=== PATIENT | male | born 1955 | race Caucasian/White ===

== ENCOUNTER 2019-03-14 09:58 | Inpatient (IN) | payer OTHER ==
[~2019-03-14] VITALS: Ht 180.3 cm; Wt 64.7 kg
[2019-03-14 11:22] VITALS: BP 161/111; PULSE 45; TEMP 98.2
[2019-03-14 12:02] VITALS: BP 161/11; PULSE 45; TEMP 98.2
--- NOTE | 2019-03-14 13:07 | NUR ---
HepXa level 0.6, decrease by 1ml/hr, TRA 7 ml/hr, next Hepxa check is 03/14 @1900
--- NOTE | 2019-03-14 14:00 | NUR ---
Admission assessment completed, alert/oriented, patient is hypertensive but is improving after having received meds at [facility], he denies any chest pain or pressure at this, he reports his breathing is much easier as well, lasix was given prior to leaving [place] and he is diuresing, he is on 2 L. o2 and sats are WNL, lungs diminished / coarse in bases, patient is a current pack/day smoker, heart RRR/distal pulses are palpable, Notified of his arrival and she has given me order to place on TELE/ draw HepXa and Troponin levels/ start heparin gtt protocol/ and Consult Cardiology, I Have notified of patients arrival to the Medical floor from [place], present, denies needs at [facility], will continue to monitor
[2019-03-14 14:55] LABS: MAGNESIUM 2.1 mg/dL (1.6-2.3); PHOSPHOROUS 5.4 mg/dL (2.5-4.5)
--- NOTE | 2019-03-14 15:16 | NUR ---
patient going down for CT
[2019-03-14 15:27] LABS: TSH w REFLEX 0.784 uIU/mL (0.465-4.680)
[2019-03-14 16:56] LABS: PH 5 (5-8); SQUAMOUS EPITHELIAL None Seen /hpf; URINE APPEARANCE Clear; URINE BACTERIA None Seen /hpf; URINE BILIRUBIN Negative (NEGATIVE); URINE BLOOD 1+ (NEGATIVE); URINE COLOR Yellow; URINE GLUCOSE Negative (NEGATIVE); URINE KETONE Negative (NEGATIVE); URINE LEUKOCYTE ESTERASE Negative (NEGATIVE); URINE NITRATE Negative (NEGATIVE); URINE PROTEIN(semi-quant) 2+ (NEGATIVE); URINE RBC 0-2 /hpf; URINE UROBILINOGEN Negative (NEGATIVE)
[2019-03-14 17:06] LABS: COLLECTION METHOD CLEAN CATCH
[2019-03-14 17:21] VITALS: BP 199/94; PULSE 48; TEMP 98
--- NOTE | 2019-03-14 19:41 | NUR ---
HepXa 0.44. No change at this time.
[2019-03-14 20:12] VITALS: BP 152/96; PULSE 78; TEMP 98.2
--- NOTE | 2019-03-14 20:20 | NUR ---
Patient assessed at this time. Alert and oriented x 4, and able to make needs known. Denies having pain and discomfort. Peripheral IV to left AC. Heparin drip running at 12 ml/hr per orders. Site is without redness, warmth, swelling, and pain. On oxygen at 2 L/min via NC. Denies having SOB and dyspnea. LS CTA in upper lobes, diminished in lower lobes. Bradycardia. Capillary refill less than 3 seconds. Non-tenting skin turgor. BSAx4. Abdomen soft and non-tender. No edema. Voices no questions, needs, or concerns at this time. Resting in bed with call light within reach.
[2019-03-14 21:50] VITALS: BP 173/117; PULSE 100
--- NOTE | 2019-03-14 21:54 | NUR ---
Telemetery called at 2139 and stated that patient's HR was going into the 130s. Upon assessment, patient was resting in bed. Labored breathing noted: RR 24, use of accessory muscles. Denies SOB and dyspnea. Pulse 100 when checked, and decreased rapidly to 40s, before increasing again above 120. BP 173/114. SPO2 95% on 2 L/min via NC. Called and spoke with Dr. Le at 2144. Updated on patient status. New order to give Procardia 30 mg now. Given to patient at 2149. Voices no questions, needs or concerns. Explained to patient why medication was given, and voiced understanding. Continues to deny SOB and chest pain and palpitations. Resting in bed with call light within reach.
[2019-03-14 23:42] VITALS: BP 176/106; PULSE 48
--- NOTE | 2019-03-14 23:58 | NUR ---
BP at this time 176/106. HR 48. HR has increased to the 130s once since given medication, when patient was walking to the bathroom. Patient's HR is staying under 110s at this time. Continues to deny having pain and discomfort. Voices no questions, needs, or concerns at this time. Resting in bed with call light within reach.
[2019-03-15] VITALS (349 sets, daily range): BP systolic 149–215; BP diastolic 91–129; PULSE 45–98; TEMP 97.7–98.9; O2SAT 91–99
--- NOTE | 2019-03-15 01:27 | NUR ---
HepXa 0.56. No change at this time.
--- NOTE | 2019-03-15 01:45 | NUR ---
Call placed to Dr. Le. Updated on VS: 154/102. HR ranging from 40s-120s. No med orders at this time. Old parameters to notify MD was HR < 50, > 120. MD changed to new paramters to notify when HR < 40, > 140. Called and updated telemetry and orders updated in chart.
--- NOTE | 2019-03-15 05:47 | NUR ---
Patient continues to deny having pain and discomfort. Voices no questions, needs, or concerns at this time. Continues on Heparin drip per orders. Resting in bed with call light within reach.
[2019-03-15 06:35] LABS: BASO % 0.1 % (0.0-2.0); GRAN # 7.1 (1.4-6.5); GRAN % 75.7 % (42.2-75.2); HEMOGLOBIN 10.7 g/dl (13.5-18.0); LYMPH # 1.3 (1.2-3.4); LYMPH % 14.2 % (20.0-51.0); MEAN CELL VOLUME 88 fl (80.0-100.0); MEAN CORPUSCULAR HEMOGLOBIN 30 pg (27.0-31.0); MEAN CORPUSCULAR HGB CONC 34 g/dl (33.0-37.0); MEAN PLATELET VOLUME 10.8 fl (7.4-10.4); MONO # 0.9 (0.1-0.6); MONO % 9.6 % (1.7-9.3); PLATELET COUNT 239 K/mm3 (130-400); REDCELL DISTRIBUTION WIDTH-CV 12.4 % (11.5-14.5)
[2019-03-15 06:42] LABS: HEMATOCRIT 31.6 % (42.0-52.0)
[2019-03-15 06:57] LABS: CALCIUM 8.3 mg/dL (8.4-10.2); CHOLESTEROL RISK RATIO 4.1; POTASSIUM 3.6 mmol/L (3.4-5.0)
[2019-03-15 06:59] LABS: CREATININE, serum 4.58 (0.66-1.25)
--- NOTE | 2019-03-15 08:15 | NUR ---
Patient was off floor when receiving report, having VQ scan. Returned slightly before 0800. DISTRICT FIRE CHIEF obtained VS and reported elevated blood pressure of 215/105. Provider notified. Cardiology notified as well and he was planning for ICU transfer. Received new orders for medications.
--- NOTE | 2019-03-15 09:35 | NUR ---
Patient administered new scheduled med ordered by cardiology. Blood pressure re-checked and still hypertensive. Spoke with hospitalist regarding this. Awaiting time for transfer to ICU.
--- NOTE | 2019-03-15 10:37 | NUR ---
Report received from Heidi at this time.
--- NOTE | 2019-03-15 10:43 | NUR ---
Initial visit; Patient and thanked Certified Breastfeeding Educator for looking in on Nate and keeping him in her prayers.
--- NOTE | 2019-03-15 11:36 | NUR ---
Patient transferred to ICU 4 by 2 medical RNs with no complications. Patient connected to bedside monitor. Heart rate spirratic with heart rate ranging from 45-110. Other vital signs are stable at this time. BP 164/98. Nitro gtt not initiated at this time. Full assessment completed. Call light placed within reach. Bed in lowest position. Side rails up x3.
--- NOTE | 2019-03-15 11:40 | NUR ---
Patient transferred to ICU room 4, report given to Melita. Transported with heparin drip and oxygen. Family accompanied patient to unit. Personal belongings sent with patient.
--- NOTE | 2019-03-15 11:55 | NUR ---
HepXa level drawn and results are 0.62 at this time. No change made to heparin gtt when transfered to floor.
[2019-03-15 12:15] LABS: URINE PROTEIN:CREAT RATIO 4.32 (0.00-0.14)
--- NOTE | 2019-03-15 14:13 | NUR ---
SW attended clinical rounds this morning. Patient's was also present. Patient will be transferred to the ICU per cardiology recommendation. SW followed up with paitent and to discuss discharge planning. Patient lives independently at home with his . Patient is independent with all ADLs and reports he exercises regularly. Patient does not have a PCP but would like to be scheduled at the [facility] in [place] when he is discharged. Patient reports he does not take many medications but he would prefer [facility] in [place]. Patient and report that dues to patient not having insurance, medications are difficult to obtain. SW reported that the [facility] have medication assistance programs. SW also informed patient and about [employer]. Patient will also be seen by the financial counselor for medicaid application and/or financial assistance application. SW will continue to follow for any discharge needs.
--- NOTE | 2019-03-15 14:43 | NUR ---
Patient placed on low dose heparin protocol per Dr. Bah' telephone orders. Orders received and initated. Refer to titration documentation.
--- NOTE | 2019-03-15 14:57 | NUR ---
Patient's heart rate suddenly spike into the 130's for about 10 seconds and then returned to the 90's with frequent PVCs.
--- NOTE | 2019-03-15 15:30 | NUR ---
Patient's states that the patient is "shaky". RN at bedside to assess patient. Patient has visible tremors involving bilateral arms and legs. Patient states he has no pain, but feels anxious. Upon talking to patient, patient feels "overwhelmed" by being the hospital and all of the events of the past 2 days. He states he does not like this room in the ICU and that his room on the medical floor felt less like a hospital. The patient also expresses that he fears and hasn't really thought about it much before now. Patient does not want any medication for anxiety, but possible medications discussed with Dr. Barth.
[2019-03-15 18:17] LABS: URINE PROTEIN:CREAT RATIO 3.34 (0.00-0.14)
--- NOTE | 2019-03-15 19:38 | NUR ---
Bedside shift report given to PAULA Harmon at this time.
[2019-03-16] VITALS (408 sets, daily range): BP systolic 134–169; BP diastolic 83–102; PULSE 64–97; TEMP 97.9–98.4; O2SAT 91–99
[2019-03-16 03:21] LABS: BASO % 0.3 % (0.0-2.0); EOS # 0.1 (0.0-0.7); EOS % 0.7 % (0-4.0); GRAN # 7.5 (1.4-6.5); GRAN % 74.5 % (42.2-75.2); HEMATOCRIT 29.2 % (42.0-52.0); HEMOGLOBIN 10.1 g/dl (13.5-18.0); LYMPH # 1.6 (1.2-3.4); LYMPH % 16.3 % (20.0-51.0); MEAN CELL VOLUME 87 fl (80.0-100.0); MEAN CORPUSCULAR HEMOGLOBIN 30 pg (27.0-31.0); MEAN CORPUSCULAR HGB CONC 35 g/dl (33.0-37.0); MEAN PLATELET VOLUME 10.5 fl (7.4-10.4); MONO # 0.8 (0.1-0.6); MONO % 7.9 % (1.7-9.3); PLATELET COUNT 233 K/mm3 (130-400); RED BLOOD COUNT 3.34 M/mm3 (4.20-5.60); REDCELL DISTRIBUTION WIDTH-CV 12.5 % (11.5-14.5)
[2019-03-16 03:30] LABS: CALCIUM 8.1 mg/dL (8.4-10.2); CREATININE, serum 4.49 (0.66-1.25); MAGNESIUM 2.2 mg/dL (1.6-2.3); POTASSIUM 3.2 mmol/L (3.4-5.0)
--- NOTE | 2019-03-16 07:28 | NUR ---
Report received from Eden MITCHELL and care resumed.
--- NOTE | 2019-03-16 09:04 | NUR ---
Follow-up visit; Patient and his thanked Manager Acquisition for looking in on Nate and stated that prayers have been answered and he is doing much better.
--- NOTE | 2019-03-16 10:23 | NUR ---
Dr Olivares in to see pt at this time.
--- NOTE | 2019-03-16 11:55 | NUR ---
Dr Le in to see pt.
--- NOTE | 2019-03-16 12:15 | NUR ---
HEPARIN DRIP DC'D PER DR MADRID PHONE ORDER.
--- NOTE | 2019-03-16 12:48 | NUR ---
Report called to Jadyn MITCHELL on medical floor. Pt to transfer to [facility] on tele.
--- NOTE | 2019-03-16 13:09 | NUR ---
Pt taken by wheelchair to room 308. Bedside update given to Qing DÍAZ.
--- NOTE | 2019-03-16 13:10 | NUR ---
PT ADMITTED TO FLOOR. REQUESTING A SHOWER, WILL ASSIST PT NEEDED FOR SHOWER. NO OTHER CONSERNS VOICED.
--- NOTE | 2019-03-16 18:30 | NUR ---
PT HAD UNEVENTFUL AFTERNOON. NO ISSUES OR CONSERNS VOICED. NO NEEDS VOICED.
--- NOTE | 2019-03-16 20:00 | NUR ---
Patient is alert and oriented, and able to make needs known. Denies having pain and discomfort. Peripheral IVs to left and right forearms flushed. Both sites are without redness, warmth, swelling, and pain. Denies having SOB and dyspnea. LS CTA in upper lobes, diminished in lower lobes. Telemetry in place. Heart with irregular rhythm, regular rate. Denies chest pain and discomfort. Given PRN Appresoline for elevated BP. Capillary refill less than 3 seconds. Non-tenting skin turgor. BSAx4. Abdomen soft and non-tender. No edema. Lesion to forehead dry with scabs. Denies pain and discomfort to area. Voices no questions, needs, or concerns at this time. Resting in bed with call light within reach.
--- NOTE | 2019-03-16 23:00 | NUR ---
Patient's heart rate going above 140s when up moving in room. Called placed to Dr. Le and updated. No new orders at this time. New order to change parameters to call if HR is greater than 150. Order updated.
[2019-03-17 04:17] VITALS: BP 132/88; PULSE 60; TEMP 98.3
--- NOTE | 2019-03-17 06:00 | NUR ---
Patient has been resting in bed with eyes closed. Has denied having pain, discomfort, SOB, and dyspnea throughout the night. Remains on room air. Voices no questions, needs, or concerns at this time. Call light is within reach. No further calls made to this nurse by telemetry since changing HR parameters to call if HR > 150, rather than 140.
[2019-03-17 06:18] LABS: BASO % 0.4 % (0.0-2.0); EOS # 0.1 (0.0-0.7); EOS % 1.8 % (0-4.0); GRAN # 4.5 (1.4-6.5); GRAN % 63.2 % (42.2-75.2); HEMOGLOBIN 10.6 g/dl (13.5-18.0); LYMPH # 1.8 (1.2-3.4); LYMPH % 24.5 % (20.0-51.0); MEAN CELL VOLUME 90 fl (80.0-100.0); MEAN CORPUSCULAR HEMOGLOBIN 30 pg (27.0-31.0); MEAN CORPUSCULAR HGB CONC 33 g/dl (33.0-37.0); MEAN PLATELET VOLUME 10.6 fl (7.4-10.4); MONO # 0.7 (0.1-0.6); MONO % 9.8 % (1.7-9.3); PLATELET COUNT 254 K/mm3 (130-400); RED BLOOD COUNT 3.52 M/mm3 (4.20-5.60); REDCELL DISTRIBUTION WIDTH-CV 12.8 % (11.5-14.5)
[2019-03-17 06:25] LABS: HEMATOCRIT 31.7 % (42.0-52.0)
[2019-03-17 06:29] LABS: BILIRUBIN,TOTAL 0.4 mg/dL (0.0-1.0); CALCIUM 8.4 mg/dL (8.4-10.2); CREATININE, serum 4.34 (0.66-1.25); POTASSIUM 3.7 mmol/L (3.4-5.0); TOTAL PROTEIN 5.8 gm/dL (6.4-8.2)
[2019-03-17 07:44] VITALS: BP 151/77; PULSE 42; TEMP 97.8
[2019-03-17 11:43] VITALS: BP 139/91; PULSE 68; TEMP 97.6
[2019-03-17 14:18] LABS: HEMATOCRIT 32.4 % (42.0-52.0); HEMOGLOBIN 10.7 g/dl (13.5-18.0)
[2019-03-17 16:26] VITALS: BP 149/96; PULSE 45; TEMP 97.8
--- NOTE | 2019-03-17 19:46 | NUR ---
PT HAD UNEVENFUL DAY. HAT PLACED IN TOLIET TO COLLECT SPECIMEN, PT AWARE. NO C/O PAIN. NO ISSUES OR CONSERNS VOICE.
--- NOTE | 2019-03-17 20:20 | NUR ---
Patient assessed at this time. Alert and oriented x 4, and able to make needs known. Denies having pain and discomfort. Peripheral IVs to left and right forearms flushed. Both sites are without redness, warmth, swelling, and pain. Denies having SOB and dyspnea. LS CTA in upper lobes, diminished in lower lobes. Respirations even and unlabored. Heart with irregular rate/rhythm. Telemetry in place. Capillary refill less than 3 seconds. Non-tenting skin turgor. BSAx4. Abdomen soft and non-tender. No edema. Voices no questions, needs, or concerns at this time. Resting in bed with call light within reach.
[2019-03-17 20:50] VITALS: BP 160/87; PULSE 44; TEMP 97.9
[2019-03-18 00:10] VITALS: BP 147/96; PULSE 42; TEMP 98.4
--- NOTE | 2019-03-18 01:19 | NUR ---
At approximately 0010, telemetry called and stated that patient had a run of A-fib RVR, or possible V-tach. VS: 97.4 42 18 147/96 96% RA. Alert and oriented. Denies having pain and discomfort, as well as SOB and dyspnea. Ordered EKG. EKG results with no changes from previous EKGs.
[2019-03-18 05:38] VITALS: BP 158/86; BP 178/92; PULSE 80; TEMP 97.4
--- NOTE | 2019-03-18 06:02 | NUR ---
Hemocult obtained. Stool was dark brown and soft formed. Patient denies having pain and discomfort. Voices no other questions, needs, or concerns at this time.
[2019-03-18 06:12] LABS: BASO % 0.6 % (0.0-2.0); EOS # 0.1 (0.0-0.7); GRAN # 4.3 (1.4-6.5); GRAN % 61.5 % (42.2-75.2); HEMOGLOBIN 10.2 g/dl (13.5-18.0); LYMPH # 1.8 (1.2-3.4); LYMPH % 25.8 % (20.0-51.0); MEAN CELL VOLUME 90 fl (80.0-100.0); MEAN CORPUSCULAR HEMOGLOBIN 30 pg (27.0-31.0); MEAN CORPUSCULAR HGB CONC 33 g/dl (33.0-37.0); MEAN PLATELET VOLUME 10.5 fl (7.4-10.4); MONO # 0.7 (0.1-0.6); MONO % 9.8 % (1.7-9.3); PLATELET COUNT 253 K/mm3 (130-400); RED BLOOD COUNT 3.42 M/mm3 (4.20-5.60); REDCELL DISTRIBUTION WIDTH-CV 12.7 % (11.5-14.5)
[2019-03-18 06:24] LABS: CALCIUM 8.5 mg/dL (8.4-10.2)
[2019-03-18 06:33] LABS: CREATININE, serum 4.37 (0.66-1.25)
[2019-03-18 06:37] LABS: HEMATOCRIT 30.9 % (42.0-52.0)
[2019-03-18] MEDS ORDERED: ZESTRIL 10MG10 MG PO (08:03)
[2019-03-18] MEDS ORDERED: LIPITOR 40MG TA40 MG PO (08:03)
[2019-03-18] MEDS ORDERED: ASPIRIN E.C. 8181 MG PO (08:03)
[2019-03-18] MEDS ORDERED: PROTONIX 40MG T40 MG PO (08:04)
[2019-03-18 08:08] VITALS: BP 168/93; PULSE 74; TEMP 98.3
--- NOTE | 2019-03-18 08:30 | NUR ---
Assessment complete. Pt sitting up in bed, A&O x 4. Breath sounds diminished in bases bilat. BS active x 4. Pt denies pain at this time. Saline lock IV's to bilat forearms without s/s of complications. POC reviewed with pt and family at bedside. No further needs reported. Call light in reach.
--- NOTE | 2019-03-18 10:00 | NUR ---
SW attended clinical rounds. Patient will discharge home today. SW provided [employer] coupons for patient's new medications and also arranged for patient to have a PCP follow up at [facility] in [place] per patient request. No additional discharge needs.
[2019-03-18] MEDS ORDERED: ALDACTONE 25MG25 M1 PO (11:12)
[2019-03-18 11:16] VITALS: BP 151/77; PULSE 74; TEMP 98.4
--- NOTE | 2019-03-18 11:30 | NUR ---
Discharge instructions reviewed with pt regarding new medications and follow-up appointments, and fluid restriction. Pt verbalizes understanding, discharged home, escorted out of facility via WC accompanied by SURVEYOR INSTRUMENT ASSISTANT and pt's .
== END 2019-03-18 11:30 | disposition home or self-care (01) | DRG 280 ==
LOC: MEDICAL 09:58 → ICU 03-15 09:01 → MEDICAL 03-15 09:02 → ICU 03-15 11:30 → MEDICAL 03-16 14:12
PROVIDERS: Internal Medicine Nephrology; Nurse Practitioner Family; Physician Assistant; ADMIT Hospitalist
DX: I16.1 Hypertensive emergency (principal); I21.4 Non-ST elevation (NSTEMI) myocardial infarction; J96.01 Acute respiratory failure with hypoxia; R04.2 Hemoptysis; E87.1 Hypo-osmolality and hyponatremia; K92.1 Melena; I50.20 Unspecified systolic (congestive) heart failure; N18.4 Chronic kidney disease, stage 4 (severe); I13.0 Hypertensive heart and chronic kidney disease with heart failure and stage 1 through stage 4 chronic kidney disease, or unspecified chronic kidney disease; F17.210 Nicotine dependence, cigarettes, uncomplicated; L98.499 Non-pressure chronic ulcer of skin of other sites with unspecified severity; R00.1 Bradycardia, unspecified; Z88.5 Allergy status to narcotic agent; J44.9 Chronic obstructive pulmonary disease, unspecified; R79.1 Abnormal coagulation profile
CPT/HCPCS: 99223-AI; 99232-AI; 99233-AI; 99239; A9540; A9567; J0360; J1644; J1940

== ENCOUNTER 2021-02-08 07:29 | Day surgery (SDC) | payer OTHER ==
[~2021-02-08] VITALS: Ht 180.3 cm; Wt 58.9 kg
[~2021-02-08 07:29] MED LIST: ALDACTONE 25MG25 M1 PO; ASPIRIN E.C. 8181 MG PO; LIPITOR 40MG TA40 MG PO; PROTONIX 40MG T40 MG PO; ZESTRIL 10MG10 MG PO
[2021-02-08 07:49] VITALS: BP 143/79; PULSE 57; TEMP 98.1
[2021-02-08] MEDS ORDERED: NORVASC 10MG10 MG PO (08:06)
[2021-02-08] MEDS ORDERED: COREG 25MG25 MG/TAB PO (08:06)
[2021-02-08] MEDS ORDERED: ASPIRIN 81M81 MG/TA2 PO (08:07)
[2021-02-08] MEDS ORDERED: APRESOLINE50 MG PO (08:07)
[2021-02-08 08:43] LABS: CREATININE, serum 7.2 (0.66-1.25); POTASSIUM 4.6 mmol/L (3.4-5.0)
[2021-02-08] MEDS ORDERED: NORCO 325 MG-51 TAB PO (11:39)
[2021-02-08 12:00] VITALS: BP 135/83; PULSE 55; TEMP 98.1
--- NOTE | 2021-02-08 12:00 | NUR ---
Patient returned to [place] 7 via cart. Alert and oriented. Postop vital signs started. Incisions are all dry and intact. Patient agrees to try sprite and pudding. Bed rails up, call light in reach. Will continue to monitor.
[2021-02-08 12:15] VITALS: BP 148/84; PULSE 56
--- NOTE | 2021-02-08 12:15 | NUR ---
Patient sitting up in bed. Alert and oriented. Tolerating food and drink well. Patient reports abdominal pain /10. Provided blanket and instrcuted to splint abdomen when coughing. HR 56, O2 93 - 95%, will give tylenol. Bed rails up, call light in reach, non slip socks on. Will continue to monitor.
[2021-02-08 12:30] VITALS: BP 138/83; PULSE 54
--- NOTE | 2021-02-08 12:30 | NUR ---
Patient request to get up to bathroom, not steady when trying to stand. Patient was sat on edge of bed and given urinal. Voided 100ml of clear, pale yellow in urinal and some on floor. Provided clear socks, gown and bath wipes. instructed patient and family to call before getting up from bed.
--- NOTE | 2021-02-08 13:15 | NUR ---
Patient reports pain is improved to 2/10 and request to be discharged. Tolerating food and drink well. Patient reports feeling more clear headed and not unsteady. Reviewed discharge instruction, education material and follow-up apt with pt and family, both verbalized understand. D/C 20g IV with no complications. Patient refused assistance dressing. Instructed to open door when ready for transportation.
--- NOTE | 2021-02-08 13:30 | NUR ---
Tranfered patient via wheelchair to personal vehicle accompanied by .
== END 2021-02-08 13:30 | disposition home or self-care (01) ==
LOC: SDCO 07:29
PROVIDERS: Registered Nurse
DX: I12.0 Hypertensive chronic kidney disease with stage 5 chronic kidney disease or end stage renal disease (principal); N18.5 Chronic kidney disease, stage 5; K40.91 Unilateral inguinal hernia, without obstruction or gangrene, recurrent; C44.329 Squamous cell carcinoma of skin of other parts of face; J44.9 Chronic obstructive pulmonary disease, unspecified; F17.210 Nicotine dependence, cigarettes, uncomplicated; Z20.822 Contact with and (suspected) exposure to COVID-19; Z79.82 Long term (current) use of aspirin; Z79.899 Other long term (current) drug therapy
CPT/HCPCS: C1750; C1781; J0330; J2405; J2704; J3010; J7030

== ENCOUNTER 2021-05-02 08:04 | Day surgery (SDC) | payer OTHER ==
[~2021-05-02] VITALS: Ht 180.3 cm; Wt 62.2 kg
[~2021-05-02 08:04] MED LIST changes: +APRESOLINE50 MG PO; +ASPIRIN 81M81 MG/TA2 PO; +COREG 25MG25 MG/TAB PO; +NORCO 325 MG-51 TAB PO; +NORVASC 10MG10 MG PO
[2021-05-02 09:09] LABS: CALCIUM 7.8 mg/dL (8.4-10.2); CREATININE, serum 7.66 mg/dL (0.72-1.25); POTASSIUM 4.9 mmol/L (3.5-4.5)
[2021-05-02] MEDS ORDERED: COREG12.5 MG PO (09:10)
[2021-05-02 09:29] VITALS: BP 184/106; PULSE 62; TEMP 97.3
[2021-05-02 11:50] VITALS: BP 117/78; PULSE 63
--- NOTE | 2021-05-02 11:50 | NUR ---
Patient returns to room 7 per cart from PACU accompanied by Arelis MITCHELL and is awake and alert. IV fluids at 50cc/hr. Temp 98.3. Incisions X3 on abdomen covered with Exofin. Denies pain at present time. Spouse in room. Siderails up x2 and call light in reach.
[2021-05-02 11:53] VITALS: TEMP 98.3
[2021-05-02 12:05] VITALS: BP 134/79; PULSE 64
--- NOTE | 2021-05-02 12:05 | NUR ---
Eating chocolate pudding and drinking water. Spouse in room.
[2021-05-02 12:20] VITALS: BP 139/84; PULSE 64
--- NOTE | 2021-05-02 12:20 | NUR ---
Tolerated chocolate pudding. Denies need for pain medication.
--- NOTE | 2021-05-02 12:25 | NUR ---
IV discontinued and dresses self. Uses urinal at bedside. Continues to deny pain medications.
--- NOTE | 2021-05-02 12:47 | NUR ---
Dismissal instructions given and voices understanding of these.
--- NOTE | 2021-05-02 12:50 | NUR ---
Patient dismissed to home driven by spouse and taken to the front door per wheelchair and assisted into vehicle with dismissal instructions in hand.
== END 2021-05-02 12:50 | disposition home or self-care (01) ==
LOC: SDCO 08:04
PROVIDERS: Surgery
DX: T85.611A Breakdown (mechanical) of intraperitoneal dialysis catheter, initial encounter (principal); I12.0 Hypertensive chronic kidney disease with stage 5 chronic kidney disease or end stage renal disease; N18.6 End stage renal disease; F17.210 Nicotine dependence, cigarettes, uncomplicated; Z99.2 Dependence on renal dialysis; Z79.82 Long term (current) use of aspirin; Z20.822 Contact with and (suspected) exposure to COVID-19; Z79.899 Other long term (current) drug therapy; Z85.828 Personal history of other malignant neoplasm of skin
CPT/HCPCS: J0360; J0690; J1100; J2405; J2704; J3010; J7030

== ENCOUNTER 2023-07-23 09:59 | Outpatient (RCR) | payer OTHER ==
[2023-07-23] VITALS (12 sets, daily range): BP systolic 127–160; BP diastolic 83–103; PULSE 71–84; TEMP 97.1–98.6
[2023-07-23] MEDS ORDERED: COREG12.5 MG PO (11:16)
[2023-07-23] MEDS ORDERED: ERIVEDGE150 MG PO (11:17)
[2023-07-23] MEDS ORDERED: CALCIUM 600MG+D1 TAB PO (11:18)
[2023-07-23] MEDS ORDERED: FERROUSAL325 MG PO (11:19)
[2023-07-23] MEDS ORDERED: FLONASEALLERGY NS (11:19)
== END 2023-07-23 16:23 ==
LOC: EUO 09:59
DX: C44.319 Basal cell carcinoma of skin of other parts of face (principal)
CPT/HCPCS: J7050; P9016